=== PATIENT | female | born 1985 | race Caucasian/White ===

== ENCOUNTER 2016-09-24 00:26 | Emergency (ER) | payer OTHER ==
[~2016-09-24] VITALS: Ht 167.6 cm; Wt 71.0 kg
[~2016-09-24 00:26] MED LIST: DICL75 PO; ORPH100T PO; OXYC-360 PO; PROV10TA PO
[2016-09-24 00:30] VITALS: BP 150/76; RESP 16; TEMP 98.6
[2016-09-24] MEDS ORDERED: DIPHTH/TETANUS/ACEL PERTUSSIS (BOOSTER) 0.5 ML VIAL/PFS IM ONE (00:45)
[2016-09-24] MEDS ORDERED: ceFAZolin INJ 1,000 MG in ceFAZolin 2 GM PREMIX 50 ML IV ONE (00:45)
[2016-09-24] MEDS ORDERED: LIDOCAINE 1%/EPINEPHrine 1:100,000 SOLN 20 ML VIAL INFIL ONE (01:00)
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
--- NOTE | 2016-09-24 02:14 | PD ---
Physical Exam Narrative I was asked by Dr. Go to repair patient's laceration. Please see his documentation for full H&P. Data Data Last Documented VS Vital Signs Date Time Temp Pulse Resp B/P Pulse Ox O2 Delivery O2 Flow Rate FiO2 09/24/16 00:30 98.6 16 150/76 Orders Femur (Ap & Lat/2vws) (09/24/16 00:31) Cefazolin Inj (Ancef Inj) (09/24/16 00:45) [id number] (Booster) Inj (Boostrix (09/24/16 00:45) Wound Care (09/24/16 00:32) Lidocai-Epi 1%-1:100,000 Inj (Xylocaine- (09/24/16 01:00) MDM Supervised Visit with LUIGI: No Procedures Procedure Narrative LACERATION REPAIR LOCATION: Right lateral thigh LENGTH: Approximately 4 cm NUMBER OF STITCHES/JEREMIAH: 7 [place] REPAIR: Verbal consent was obtained. The area of the laceration was cleaned and prepped. The laceration was infiltrated with lidocaine with epi. The wound was copiously irrigated and explored without evidence of foreign body, bony involvement, ligament injury, tendon injury, or neurovascular injury. The wound was closed using jeremiah. This was a single layer repair. A sterile dressing was applied by nurse. The patient was advised to keep the affected area as clean and dry as possible using soap and water. There were no complications. Patient tolerated the procedure well. Joaquin Tucker Sep 24, 2016 02:14
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
[2016-09-24] MEDS ORDERED: LOPINAVIR/RITONAVIR 200 MG/50 MG TAB PO ONE (02:30)
[2016-09-24] MEDS ORDERED: ZIDOVUDINE 100 MG CAP PO ONE (02:30)
[2016-09-24] MEDS ORDERED: EMTR1TAB PO (03:26)
[2016-09-24] MEDS ORDERED: RALT400 PO (03:26)
== END 2016-09-24 03:30 | disposition home or self-care (01) ==
LOC: NEPC 00:26
DX: S71.111A Laceration without foreign body, right thigh, initial encounter (principal); X99.1XXA Assault by knife, initial encounter; Z23 Encounter for immunization
CPT/HCPCS: 12002; 73552; 90471; 90715